=== PATIENT | male | born 2000 | race African-American/Black ===

== ENCOUNTER 2018-02-22 08:08 | Emergency (ER) | payer OTHER ==
[2018-02-22] MEDS ORDERED: Acetaminophen 500 MG TAB ONE (09:10)
[2018-02-22] MEDS ORDERED: Cyclobenzaprine 10 MG TAB ONE (09:11)
== END 2018-02-22 09:19 | disposition home or self-care (01) ==
LOC: ERS 08:08
DX: M79.604 Pain in right leg (principal); I10 Essential (primary) hypertension; E10.9 Type 1 diabetes mellitus without complications
CPT/HCPCS: 99283